=== PATIENT | male | born 1955 | race Caucasian/White ===

== ENCOUNTER → 2023-08-01 | Outpatient (CLI) | payer MEDICARE, BC ==
[~2023-08-01] MED LIST: AMBIEN 10MG10 MG PO; KLONOPIN 1MG1 MG PO; LIPITOR 10MG10 MG PO; NEXIUM 40MG40 MG PO; NORCO 325 MG-51 TAB PO; PROAIR HFA0.09 MG/AC IH; SYNTHROID0.075 MG/T PO; XANAX .25M0.25 MG/TA PO; ZYRTEC10MGSGL
== END ==
LOC: COL.RAD 13:11
DX: Z12.2 Encounter for screening for malignant neoplasm of respiratory organs (principal); Z87.891 Personal history of nicotine dependence